=== PATIENT | male | born 1955 | race Caucasian/White ===

== ENCOUNTER → 2020-04-01 09:44 | Outpatient (CLI) | payer MEDICARE, BC, SELFPAY ==
--- NOTE | 2020-04-01 09:46 | DI.US.S_ITS ---
PROCEDURE: US SCROTUM INDICATIONS: L testicle pain with lump, concern for epididymitis TECHNIQUE: Real-time scanning was performed of the scrotum and testicles, with image documentation. Color and pulse Doppler interrogation was performed of both testicles. COMPARISON: None. FINDINGS: Right: Testicle is normal in size at 5.3 x 2.8 x 3.8 cm, and homogenous in echotexture. Epididymis is normal in overall size and morphology. No hydrocele or varicoceles. Overlying scrotal skin is normal in thickness. Left: Testicle is normal in size at 4.7 x 3.4 x 3.8 cm, and homogeneous in echotexture. Epididymis is markedly thickened and demonstrates hyperemic appearance specially in the tail. No hydrocele or varicoceles. Overlying scrotal skin is normal in thickness. Doppler: Color and pulse Doppler demonstrate normal and symmetric arterial flow in both testicles. IMPRESSION: Heterogeneous and thickened left epididymis, with hyperemia. Findings suspicious for left epididymitis. Please correlate clinically and with urinalysis data. Dictated by: Andre Ayon M.D. on 04/01/2020 at 10:47 Approved by: nAdre Ayon M.D. on 04/01/2020 at 11:51
== END ==
PROVIDERS: Referring Provider Physician Assistant; Visit Provider Physician Assistant
DX: N50.812 Left testicular pain (principal)
CPT/HCPCS: 76870

== ENCOUNTER → 2020-04-01 10:22 | Outpatient (CLI) | payer MEDICARE, BC, SELFPAY | PROVIDERS: Visit Provider Physician Assistant | DX: N50.812 Left testicular pain (principal) | CPT/HCPCS: 76870; 87086 ==

== ENCOUNTER → 2024-06-13 08:18 | Outpatient (CLI) | payer MEDICARE, BC, SELFPAY | PROVIDERS: Visit Provider Nurse Practitioner Family | DX: R30.0 Dysuria (principal); R36.0 Urethral discharge without blood | CPT/HCPCS: 87077; 87086; 87186; 87210 ==